=== PATIENT | male | born 1950 | race Caucasian/White ===

== ENCOUNTER 2023-04-20 08:02 | Day surgery (SDC) | payer OTHER ==
--- NOTE | 2023-04-18 11:46 | EKG ---
Test Date: 2023-04-18 Test Time: 12:20:23 [employer]: CANDACE MEASUREMENT RESULTS: Intervals: Rate: 46 [place]: 186 QRSD: 98 QT: 464 QTc: 406 [place]: P: 56 [place]: 186 QRS: 11 T: 72 INTERPRETIVE STATEMENTS: Marked sinus bradycardia Nonspecific T wave abnormality Abnormal ECG Compared to ECG 09/13/1996 10:42:00 T-wave abnormality now present Sinus rhythm no longer present Electronically Signed On 04-18-23 11:45:28 GEOSPATIAL IMAGERY INTELLIGENCE ANALYST by Billy Bingham
[2023-04-20] MEDS ORDERED: Ringers Lactate 1,000 ML IV ONE (08:19)
[2023-04-20] MEDS ORDERED: CLINDAMYCIN 900MG/D5W 900 MG/50 ML IVPB IV ONE (08:19)
[2023-04-20 08:50] LABS: Potassium 3.4 mEq/L (3.5-5.1)
[2023-04-20] MEDS ORDERED: LIDOCAINE HCL/EPINEPHRINE 20 ML MDV ONE (10:13)
[2023-04-20] MEDS ORDERED: ONDANSETRON 4 MG/2 ML VIAL ONE (10:38)
[2023-04-20] MEDS ORDERED: propofoL 200 MG/20 ML VIAL IV ONE (10:41)
[2023-04-20] MEDS ORDERED: LIDOCAINE 2% MPF 5 ML VIAL ONE (10:41)
[2023-04-20] MEDS ORDERED: FENTANYL CITR 100 MCG/2 ML ONE (10:41)
[2023-04-20] MEDS ORDERED: MIDAZOLAM HCL 2 MG/2 ML INJ ONE (10:41)
[2023-04-20] MEDS ORDERED: GLYCOPYRROLATE 0.2 MG/ML SYR ONE (11:00)
[2023-04-20] MEDS ORDERED: EPHEDRINE SULF 50 MG/ML VIAL ONE (11:05)
[2023-04-20 14:28] VITALS: BP 120/67; TEMP 97.2; O2SAT 99
--- NOTE | 2023-04-21 13:19 | OP ---
Date of Procedure: 04/20/2023 Surgeon: RAUL BORREGO Preoperative Diagnosis: Right upper lip neoplasm, uncertain behavior. Postoperative Diagnosis: Invasive basal cell carcinoma, right upper lip. Procedure: Excisional biopsy with frozen section analysis of right upper lip basal cell carcinoma un renu general and local sedation. Anesthesia: General endotracheal anesthesia was administered. I also infiltrated approximately 15 m L of 1% lidocaine with 1:100,000 epinephrine at the right upper lip surgical site. Estimated Blood Loss: Less than 5 mL. Specimens: First frozen section specimen was sent to pathology for evaluation. The first specimen c nanci back positive at the medial and deep margin. Thus, a second specimen was taken including the med ial peripheral margin epidermis and extending down to the deep tissue layer down to the orbicularis a uris muscle. The second specimen appeared free of any residual tumor after it was evaluated by Patho logy Department. Findings: Ulcerative neoplasm extending from right upper lip down to orbicularis auris muscle and ex tending medially to the right nasal ala rim. Complications: None. Disposition: Stable. The patient tolerated the procedure well. Indications For Procedure: The patient is a pleasant 72-year-old male, who developed an enlarging ne oplasm involving the right upper lip that started approximately 2 months ago and was not healing. He presented to my office and examination revealed a suspicious neoplasm involving the right upper lip and extending to the right nasal alar crease. These were indications to bring the patient to operati ve suite for the above-mentioned procedures. He has had no other prior biopsies and so the plan was for a complete excisional biopsy under general and local sedation with possible flap closure. He und erstood, all questions were answered. Risks versus benefits and complications were explained in deta il and a consent form was signed which was placed in the chart. Description Of Procedure: The patient was transferred from the preoperative holding area to the oper ative suite by Department of Anesthesia, placed on the operating room table supine, sedated and intub ated in normal fashion. The tube was taped to the left oral commissure and then I injected approxima tely 10 mL of 1% lidocaine with 1:100,000 epinephrine at the area of the right upper lip, where the l esion was located. The patient was then sterilely prepped and draped. Utilizing a surgical marker, I marked the area of the lesion and then measured approximately 0.3 cm f rom the lesion peripherally and utilizing a #15 blade scalpel, I made an incision around the lesion i ncluding a 0.3 cm margin of what appeared to be clear tissue. The incision was made down to the subc utaneous level and then I utilized monopolar electrocautery on a setting of 20 for coagulation, 1 of cutting, to stop any areas of bleeding. I then used curved Iris scissors to completely remove the le franny. Once removed, I placed on a tray and then marked the superior, inferior, medial, and lateral b orders. The lesion measured approximately 2.4 x 1.8 cm and then it was handed off the field. Hemost asis was achieved with monopolar electrocautery. The result returned invasive basal cell carcinoma, possibly basal squamous cell carcinoma extending to the deep and medial borders. It was my decision to then remove an additional medial border including epidermis and deep margin tissue which measured approximately 1.2 x 1.0 cm and this was handed off the field and pathology evaluated the specimen and it appeared that the specimen was free of any residual malignancy. Due to the fact that the lesion was extending into the right nasal ala, I made a decision to reconstruct at a later date in the case that permanent sections returned a diagnosis of residual malignancy. The area was cleaned and Xerofo rm and compressive dressing were placed. He tolerated the procedure well, will be discharged home on antibiotic and analgesic medication, will follow up in 1 w [place] or sooner if needed. DEWAYNE/ALYSSA Voice ID: [id number] Report ID: [id number]
== END 2023-04-20 14:17 | disposition home or self-care (01) ==
LOC: OR 08:02
PROVIDERS: ATTEND Otolaryngology Facial Plastic Surgery
PROC: 0JB10ZZ Excision of Face Subcutaneous Tissue and Fascia, Open Approach (ICD-10-PCS; principal; 2023-04-20 09:45)
DX: C44.01 Basal cell carcinoma of skin of lip (principal)
CPT/HCPCS: 93005; 80048; 36415; 88331; 88332 ×2; 88305; 11644; J2704; J2001; J2250; J3010; J2405; J7120